=== PATIENT | female | born 1960 | race Caucasian/White ===

== ENCOUNTER 2023-09-12 17:34 | Observation (INO) | payer OTHER, SELFPAY ==
--- NOTE | ~2023-09-12 | XR_ITS ---
EXAMINATION: XR chest 2V Exam Date/Time: 09/12/2023 18:05 CDT HISTORY: chest pain WITH SHORTNESS OF BREATH X 3 DAYS Comparison: None. RESULT: Lines, tubes, and devices: None. Lungs and pleura: Mild hemidiaphragm flattening, may reflect emphysematous change. Lungs otherwise c lear. Cardiomediastinal silhouette: Normal. Other: No acute osseous or upper abdominal finding. IMPRESSION: No acute cardiopulmonary process. Reviewed, dictated and finalized at location K.
--- NOTE | ~2023-09-12 | CT_ITS ---
EXAMINATION: CTA chest PE abdomen pel DATE: 09/12/2023 23:59 INDICATION: SOB, CP, + DIMER, ABD PAIN/BLOATING, HX HEPC TECHNIQUE: Computed tomography angiography (CTA) of the chest was performed with 100 mL Omnipaque-350 intravenous contrast timed to evaluate the pulmonary arteries, followed by portal venous phase imagi ng of the abdomen and pelvis. Coronal maximum intensity projection 3D-reconstructions were created by the technologist. The dose-length product (DLP) was 697.94 mGy-cm. Automated exposure control and it erative reconstruction technique were employed. COMPARISON: None. FINDINGS: CHEST: Lung parenchyma and airways: Mild septal thickening. Minimal dependent right lower lung atelectasis. Pleura: Small volume right pleural fluid collection. Thoracic inlet, axillae and chest wall: No thyroid or soft tissue mass. Thoracic aorta: No significant dilation. No dissection. Mild atherosclerosis. Mediastinum: Normal. Heart and pericardium: Normal. Coronary artery calcifications: Absent. Thoracic bones: No acute osseous finding. Pulmonary arteries: Study quality: Adequate. No pulmonary emboli detected. ABDOMEN/PELVIS: Liver: Nodular liver border. Periportal edema. Biliary/Gallbladder: No gallbladder stones. Mild pericholecystic fat stranding. No bile duct dilation . Pancreas: No mass or duct dilation. Spleen: Normal. Adrenals:No mass. Kidneys: No suspicious mass, obstructing stone, or hydronephrosis. GI tract: Mild distal esophageal and gastric wall edema. No small or large bowel dilation. Appendix i s not confidently visualized and is likely surgically absent. Diverticulosis without diverticulitis. Mesentery/Peritoneum: No ascites, mass, or free air. Retroperitoneum: No mass. Pelvis: Pelvic organs are within normal limits. Small volume free pelvic fluid. Soft Tissues: Fat and fluid containing, moderate-sized supraumbilical ventral hernia with mild surrou nding fat stranding. Abdominopelvic bones: No acute osseous finding. IMPRESSION: No CT evidence of acute pulmonary embolus. Mild interstitial edema. Small right pleural effusion. Mild esophagitis/gastritis. Cirrhotic liver changes. Nonspecific periportal edema. Mild gallbladder edema or inflammation. Correlate with symptoms of right upper quadrant pain and bili feroz labs. Small volume ascites. Moderate sized supraumbilical ventral hernia containing fat and fluid, with mild inflammatory changes . Reviewed, dictated and finalized at location K. IMPRESSION: No CT evidence of acute pulmonary embolus. Mild interstitial edema. Small right pleural effusion. Mild esophagitis/gastritis. Cirrhotic liver changes. Nonspecific periportal edema. Mild gallbladder edema or inflammation. Correlate with symptoms of right upper quadrant pain and biliary labs. Small volume ascites. Moderate sized supraumbilical ventral hernia containing fat and fluid, with mil d inflammatory changes.
--- NOTE | 2023-09-12 17:35 | ECG_ITS ---
Test Date: 2023-09-12 17:40:04 Measurements Intervals [place] Rate: 69 P: 68 CO: 144 QRS: 47 QRSD: 84 T: 40 QT: 372 QTc: 399 Interpretive Statements SINUS RHYTHM POSSIBLE LEFT ATRIAL ENLARGEMENT POSSIBLE RIGHT VENTRICULAR CONDUCTION DELAY CONSIDER ANTERIOR INFARCT, AGE INDETERMINATE BORDERLINE ST-T WAVE ABNORMALITY- LAT/HIGH LAT LEADS BASELINE ARTIFACT- I, II, III, AVR, AVL, AVF, V2-V3 ABNORMAL ECG No previous ECG available for comparison Electronically Signed On 09-12-2023 18:21:14 CDT by Aguila Sepulveda D.O.
[2023-09-12 17:36] VITALS: BP 151/104; PULSE 68; RESP 18; TEMP 36.4; O2SAT 100
--- NOTE | 2023-09-12 17:48 | ED.CHESTPAIN ---
HPI - Chest Pain General Chief Complaint: Chest Pain <Liz Simental PA-C - Last Filed: 09/13/23 19:04> Stated Complaint: chest pain <Liz Simental PA-C - Last Filed: 09/13/23 19:04> Time Seen by Provider: 09/12/23 17:48 <Liz Simental PA-C - Last Filed: 09/13/23 19:04> Focused HPI: This is a 63-year-old female that presents to the emergency department for chest pain. Ongoing over the last couple of days. Worse with exertion. Reports she has also had shortness of breath and lower extremity edema. GENERAL: Well-appearing, well-nourished, and in no acute distress. HEAD: Normocephalic, atraumatic. CHEST: No respiratory distress. Rales to the bilateral lower lobes HEART: Regular rate and rhythm.? NEURO: ?Alert and oriented x3. Patient screened in triage and initial orders placed.? ?Additional care and disposition to be based upon?diagnostic testing and treatment. <Liz Simental PA-C - Last Filed: 09/13/23 19:04> Source: patient <Shanta Oates PA-C - Last Filed: 09/13/23 02:15> Mode of arrival: ambulatory <Shanta Oates PA-C - Last Filed: 09/13/23 02:15> Limitations: no limitations <KATHARINE Muir Last Filed: 09/13/23 02:15> History of Present Illness HPI narrative: agree with above HPI. Patient reports she has had chest pain mostly at night, states she will wake up with pain in her chest. She also reports waking up in the middle night gasping for air. Shortness of breath and chest pain are also worse with exertion. She does admit to lower extremity swelling for the last several days. Denies lower extremity pain. She did have a Doppler study of her right lower extremity 3 days ago which was negative for DVT. Patient also reports having abdominal bloating, denies significant abdominal pain. She does have history of hepatitis-C from previous drug abuse. She is clean from drugs. Denies EtOH use. States she was scheduled to have a liver ultrasound soon. Reports mild cough, denies fevers, nausea, vomiting, diarrhea. <KATHARINE Muir Last Filed: 09/13/23 02:15> Related Data Home Medications: Home Medications Medication Instructions Recorded Confirmed atenolol 25 mg tablet 12.5 mg PO DAILY 09/13/23 09/13/23 cetirizine 10 mg tablet 10 mg PO QPM 09/13/23 09/13/23 clonidine HCl 0.2 mg tablet 0.2 mg PO BID 09/13/23 09/13/23 fluticasone propionate 50 2 spray intranasal DAILY 09/13/23 09/13/23 mcg/actuation nasal spray,suspension nicotine 21 mg/24 hr daily 1 patch transdermal DAILY 09/13/23 09/13/23 transdermal patch quetiapine 300 mg tablet 300 mg PO HS 09/13/23 09/13/23 venlafaxine 150 mg 150 mg PO DAILY 09/13/23 09/13/23 capsule,extended release 24 hr venlafaxine 75 mg capsule,extended 75 mg PO DAILY 09/13/23 09/13/23 release 24 hr <Liz Simental PA-C - Last Filed: 09/13/23 19:04> Allergies/Adverse Reactions: Allergies Allergy/AdvReac Type Severity Reaction Status Date / Time amoxicillin Allergy Hives Verified 09/12/23 17:42 <KATHARINE Longoria Last Filed: 09/13/23 19:04> Review of Systems Review of Systems: CONSTITUTIONAL: Denies fever, chills, or sweats. ENT: Denies rhinorrhea, congestion, sore throat. CARDIOVASCULAR: See HPI. RESPIRATORY: See HPI. GASTROINTESTINAL: See HPI. <KATHARINE Muir Last Filed: 09/13/23 02:15> All systems reviewed & are unremarkable except as noted in HPI and below <KATHARINE Muir Last Filed: 09/13/23 02:15> PMFSH Past Medical History Medical History: Medical History (Updated 09/13/23 @ 13:50 by Linden Prieto MD) Ascites CHF exacerbation Chronic hepatitis C with cirrhosis Elevated liver enzymes <KATHARINE Longoria Last Filed: 09/13/23 19:04> Family History Family History: Family History (Updated 09/13/23 @ 03:08 by Liza Recio RN) Other Unknown family medical histo
[2023-09-12 17:59] LABS: Basophils Percent Auto 0.6 % (0.2-1.2); Eosinophils Absolute Auto 0.1 K/mm3 (0-0.3); Eosinophils Percent Auto 2.8 % (0-4.4); Hematocrit 37.8 % (37.0-47.0); Hemoglobin 12.6 g/dL (12.0-15.0); Immature Granulocyte Absolute 0.01 K/mm3 (0.00-0.031); Immature Granulocyte Percent A 0.2 % (0-0.5); Immature Platelet Fraction Pct 9.6 % (0.9-11.2); Lymphocytes Absolute Auto 1.39 K/mm3 (0.9-3.2); Lymphocytes Percent Auto 29.8 % (18.3-44.2); Mean Corpuscular HGB Conc 33.3 g/dl (32-36); Mean Corpuscular Hemoglobin 31.2 pg (26-34); Mean Corpuscular Volume 93.6 fl (80-100); Mean Platelet Volume 12.3 fl (7.4-10.4); Monocytes Absolute Auto 0.4 K/mm3 (0.1-0.6); Monocytes Percent Auto 8.8 % (2.6-8.5); Neutrophils Absolute Auto 2.7 K/mm3 (1.3-6.7); Neutrophils Percent Auto 57.8 % (45.5-73.1); Platelet Count Result 79 k/mm3 (150-375); Red Blood Count 4.04 M/mm3 (4.2-5.4); Red Cell Distribution Width 13.2 % (11.5-14.5); White Blood Count 4.7 K/mm3 (4.5-10.0)
[2023-09-12 18:08] LABS: Alanine Aminotransferase 42 U/L (6-35); Albumin Level 4.3 g/dL (3.5-5.1); Alkaline Phosphatase 103 U/L (38-126); Anion Gap 12 mmol/L (4-12); Aspartate Amino Transferase 56 U/L (14-36); Bilirubin,Total 0.7 mg/dL (0.2-1.3); Blood Urea Nitrogen 10 mg/dL (7-17); Calcium 8.9 mg/dL (8.4-10.2); Carbon Dioxide 25 mmol/L (22-30); Chloride 98 mmol/L (98-107); Estimated CRCL calculation 65 ml/min; Estimated Glomerular Filt Rate > 60; Glucose 103 mg/dL (65-110); Lipase 58 U/L (23-300); Potassium 3.9 mmol/L (3.4-5.0); Sodium 135 mmol/L (137-145)
[2023-09-12 18:11] LABS: INR 1.1; Prothrombin Time 14.8 Seconds (11.1-14.7)
[2023-09-12 18:12] LABS: Partial Thromboplastin Time 34.4 Seconds (22.3-36.8)
[2023-09-12 18:20] LABS: Troponin I < 0.012 ng/mL (0.000-0.034)
[2023-09-12 18:28] LABS: NT Pro B Type Natriuretic Pept 3830 pg/mL (19.9-100)
[2023-09-12 18:32] LABS: D Dimer 1.59 ug/mL (<0.48)
--- NOTE | 2023-09-12 21:00 | ECG_ITS ---
Test Date: 2023-09-12 23:34:37 Measurements Intervals [place] Rate: 64 P: 70 CO: 155 QRS: 73 QRSD: 81 T: 41 QT: 412 QTc: 427 Interpretive Statements SINUS RHYTHM POSSIBLE LEFT ATRIAL ENLARGEMENT POSSIBLE RIGHT VENTRICULAR CONDUCTION DELAY BORDERLINE R WAVE PROGRESSION, ANTERIOR LEADS BORDERLINE ST ABNORMALITY- INF/LAT LEADS BASELINE ARTIFACT- I, II, AVR, V4-V6 BORDERLINE ECG Compared to ECG 09/12/2023 17:40:04 NO SIGNIFICANT CHANGE Electronically Signed On 09-13-2023 06:07:28 CDT by Aguila Sepulveda D.O.
[2023-09-12 21:49] VITALS: BP 192/93; PULSE 65; RESP 18; O2SAT 97
[2023-09-12 21:54] VITALS: BP 192/91; PULSE 62; PULSE 63; RESP 16; O2SAT 97; O2SAT 99
[2023-09-12 21:57] LABS: Troponin I < 0.012 ng/mL (0.000-0.034)
[2023-09-12 23:46] LABS: Appearance Urine Cloudy (Clear); Bacteria Urine 4+ /hpf; Bilirubin Urine Negative (Negative); Blood Urine Negative (Negative); Color Urine Yellow (Yellow); Glucose Urine UA Negative (Negative); Ketones Urine Negative (Negative); Leukocyte Esterase Ur Negative LEU/UL (Negative); Nitrate Urine Negative (Negative); Non Pathogenic Casts 0-2; Protein Urine Negative (Negative); RBC Urine 0-2 /hpf (0-2); Specific Grav Ur 1.012 (1.001-1.035); Squamous Epithelial Cell Urine None Seen /hpf (Few); Urobilinogen Urine 0.2 mg/dL (<2.0); WBC Urine 0-5 /hpf (0-3); pH Urine 7.5 (5.0-9.0)
[2023-09-13] VITALS (18 sets, daily range): BP systolic 107–209; BP diastolic 55–110; PULSE 54–75; RESP 14–18; TEMP 35.8–36.9; O2SAT 96–100; BMI 25.4
[2023-09-13 00:01] LABS: Amphetamine Screen Urine Negative (Negative); Barbiturate Screen Urine Negative (Negative); Benzodiazepines Screen Urine Positive (Negative); Cannabinoid Screen Urine Negative (Negative); Cocaine Screen Urine Negative (Negative); Methadone Screen Urine Negative (Negative); Opiate Screen Urine Negative (Negative); Phencyclidine Screen Urine Negative (Negative)
[2023-09-13] MEDS: NITROGLYCERIN SL 0.4 MG TABLET SUBLINGUAL (00:21)
[2023-09-13 00:34] LABS: Add Urine Microscopic? YES
[2023-09-13] MEDS: FUROSEMIDE INJ 40 MG/4 ML VIAL IV PUSH ×2 (00:44→08:35)
[2023-09-13 00:58] LABS: Troponin I 0.013 ng/mL (0.000-0.034)
--- NOTE | 2023-09-13 03:07 | ADMGEN ---
This patient, Radha Mcgrath, was admitted to IMU Room 202-01 at 0220. Patient/family oriented to hospital policies and general routines including ID bracelet, bed and alarms, visiting hours, pain management, procedures, bathroom and other care routines, personal items, smoking policy, room service/diet, and visiting hours. Information on how to activate the Rapid Response Team has been discussed. Patient/Family are encouraged to report perceived risks to care and to ask questions if they do not understand what they are told or what they should do.
--- NOTE | 2023-09-13 03:55 | PM.IMHP ---
H&P: HPI History of Present Illness Date/Time: 09/13/23 03:55 Chief Complaint: Shortness of breath Narrative: Patient is a pleasant 63-year-old female who came to the emergency room complaining of some midsternal chest pain and ongoing for the last few days associated with some shortness of breath. The patient also noticed some lower extremity edema which is irritated new no previous history of diagnosed heart failure but the symptoms are relatively new patient came to emergency room for further evaluation. Patient recently had ultrasound of lower extremity to rule out DVT which was negative patient also has history of hepatitis C from previous drug use. Denied any history of alcohol use none now and states that she is clean. Patient does not have any chest pain at this time no nausea vomiting diarrhea headaches no history of any renal failure Review of Systems Review of Systems: All systems reviewed & are unremarkable except as noted in HPI and below PMFSH Family History Family History (Updated 09/13/23 @ 03:08 by Liza Recio RN) Other Unknown family medical history Social History Social History Smoking packs per day: 1 Smoking cigarettes per day: 20.0 Smoking status: Current every day smoker Tobacco type: cigarettes Alcohol intake: former Substance use: former Substance use type: heroin Do You Feel Safe in your Home?: Yes Lack of Transportation: No Lack of Food: Never True Current Housing: I Have Housing Concerned About Future Housing: No Difficulty Paying Gas/Electric Bills: No Difficulty Paying for Meds: No Currently Unemployed: No Education: High School Diploma/GED Difficulty w/ Childcare or Family Care: No Spiritual care concerns: No Meds Home Medications and Allergies Home Medications Medication Instructions Recorded Confirmed Type atenolol 25 mg tablet 12.5 mg PO DAILY 09/13/23 09/13/23 History cetirizine 10 mg tablet 10 mg PO QPM 09/13/23 09/13/23 History clonidine HCl 0.2 mg tablet 0.2 mg PO BID 09/13/23 09/13/23 History fluticasone propionate 50 2 spray intranasal DAILY 09/13/23 09/13/23 History mcg/actuation nasal spray,suspension nicotine 21 mg/24 hr daily 1 patch transdermal DAILY 09/13/23 09/13/23 History transdermal patch quetiapine 300 mg tablet 300 mg PO HS 09/13/23 09/13/23 History venlafaxine 150 mg 150 mg PO DAILY 09/13/23 09/13/23 History capsule,extended release 24 hr venlafaxine 75 mg capsule,extended 75 mg PO DAILY 09/13/23 09/13/23 History release 24 hr Allergies Allergy/AdvReac Type Severity Reaction Status Date / Time amoxicillin Allergy Hives Verified 09/12/23 17:42 Vital Signs Vital Signs - 24 hr 09/12/23 17:36 09/12/23 21:49 09/12/23 21:54 Temperature 36.4 C Pulse Rate 68 65 62 Respiratory Rate 18 18 16 Blood Pressure 151/104 H 192/93 H 192/91 H Pulse Oximetry 100 97 99 Oxygen Delivery Room Air Room Air 09/12/23 21:54 09/12/23 21:54 09/13/23 00:21 Temperature 36.9 C Pulse Rate 63 67 Respiratory Rate 14 Blood Pressure 209/78 H Pulse Oximetry 97 100 Oxygen Delivery Room Air 09/13/23 01:19 09/13/23 02:14 09/13/23 02:38 Temperature 36.2 C L Pulse Rate 61 59 L 63 Respiratory Rate 14 15 16 Blood Pressure 107/90 163/81 H 166/64 H Pulse Oximetry 100 98 100 Oxygen Delivery 09/13/23 03:31 Temperature Pulse Rate Respiratory Rate Blood Pressure Pulse Oximetry Oxygen Delivery Room Air Exam Narrative: GENERAL: Well appearing, no acute distress. HEAD: Normocephalic, atraumatic. NECK: Supple. No adenopathy, no masses. RESPIRATORY: respirations nonlabored. , no rales, wheezing. CARDIOVASCULAR: Regular rate and rhythm without murmurs, . Peripheral pulses 2+ and equal bilaterally. Plus two pitting edema bilateral lower extremity ABDOMINAL: Soft, nontender, nondistended, no hepatosplenomegaly. Nor
[2023-09-13] MEDS: rOPINIRole HCL 1 MG TABLET PO (04:28)
[2023-09-13 04:30] LABS: Hematocrit 39.5 % (37.0-47.0); Hematocrit 40.5 % (37.0-47.0); Hemoglobin 13.2 g/dL (12.0-15.0); Hemoglobin 13.6 g/dL (12.0-15.0); Mean Corpuscular HGB Conc 33.6 g/dl (32-36); Mean Corpuscular Hemoglobin 30.6 pg (26-34); Mean Platelet Volume 12.5 fl (7.4-10.4); Platelet Count Result 112 k/mm3 (150-375); Red Blood Count 4.45 M/mm3 (4.2-5.4); White Blood Count 5.9 K/mm3 (4.5-10.0)
[2023-09-13 04:43] LABS: Cholesterol 135 mg/dL (0-200); HDL Direct 56 mg/dL; Triglycerides 73 mg/dL (<150)
[2023-09-13 04:45] LABS: Alanine Aminotransferase 42 U/L (6-35); Albumin Level 4.5 g/dL (3.5-5.1); Alkaline Phosphatase 117 U/L (38-126); Anion Gap 11 mmol/L (4-12); Aspartate Amino Transferase 54 U/L (14-36); Bilirubin,Total 1.2 mg/dL (0.2-1.3); Blood Urea Nitrogen 8 mg/dL (7-17); Carbon Dioxide 29 mmol/L (22-30); Chloride 93 mmol/L (98-107); Estimated CRCL calculation 57 ml/min; Estimated Glomerular Filt Rate > 60; Glucose 120 mg/dL (65-110); Potassium 3.7 mmol/L (3.4-5.0); Sodium 133 mmol/L (137-145)
[2023-09-13 04:54] LABS: LDL Cholesterol Direct 52 mg/dL
[2023-09-13] MEDS: cloNIDine HCL 0.2 MG TABLET PO ×2 (08:34→17:17)
[2023-09-13] MEDS: atenoloL 12.5 MG TABLET PO (08:34)
[2023-09-13] MEDS: FLUTICASONE PROPIONATE 0.05% NA SPR 16 GM BTL (*BKC) 2 SPRAY NASAL (08:35)
[2023-09-13] MEDS: VENLAFAXINE HCL XR 75 MG CAP.ER.24H 225 MG PO (08:35)
[2023-09-13] MEDS: NICOTINE (*PBKC) 21 MG PATCH 1 PATCH TRANSDERM (08:35)
[2023-09-13] MEDS: ACETAMINOPHEN 325 MG TABLET 650 MG PO (10:57)
[2023-09-13] MEDS: CYCLOBENZAPRINE HCL 5 MG TABLET PO (12:25)
[2023-09-13] MEDS: ONDANSETRON INJ 4 MG/2 ML VIAL IV PUSH (12:25)
--- NOTE | 2023-09-13 13:44 | WPDGICN ---
Assessment and Plan Assessment and plan (1) Chronic hepatitis C with cirrhosis: Code(s): B18.2 - Chronic viral hepatitis C; K74.60 - Unspecified cirrhosis of liver Status: Acute Assessment and Plan: she is treatment naive, she says that already has follow-up with local GI doctor next month and then will discuss about treatment also will need EGD to assess for portal htn, varices, etc- this can be done by her GI doctor I told her the importance to treat HCV. She can follow-up in our office if she decides to continue care here at some point will need also to get establish with hepatology (right now low MELD score) (2) Elevated liver enzymes: Code(s): R74.8 - Abnormal levels of other serum enzymes Status: Acute Assessment and Plan: from cirrhosis (3) CHF exacerbation: Code(s): I50.9 - Heart failure, unspecified Status: Acute (4) Thrombocytopenia: Code(s): D69.6 - Thrombocytopenia, unspecified Status: Acute Assessment and Plan: from cirrhosis (5) Ascites: Code(s): R18.8 - Other ascites Status: Acute Assessment and Plan: small size, unable to tap on lasix, will add low dose aldactone (normal renal function and lytes) monitor blood work as outpatient 2g na diet nutrition support GI Consult Note Consult date/time: 09/13/23 13:44 Reason for consult: cirrhosis HPI: Radha Mcgrath is a 63 year old female with h/o smoker, HCV diagnosed about 3 years ago but never treated, 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 Here with chest discomfort and also dyspnea on exertion for last 2 days, noted leg edema. She was admitted, CXR normal but BNP 3800, also transaminases 50's, normal bili. CT showed cirrhosis with small ascites. Started on diuretics and feeling better, she wonders if could go home soon. Review of Systems Constitutional: Constitutional: Denies chills Eyes: Eyes: Denies blurry vision ENT: Reports Normal hearing present Cardiovascular: Cardiovascular: Reports chest pain Respiratory: Respiratory: Reports dyspnea on exertion Gastrointestinal: Gastrointestinal: Denies abdominal pain Genitourinary: Genitourinary: Denies dysuria Musculoskeletal: Musculoskeletal: Denies neck pain Integumentary/Breasts: Skin/Breast: Denies rash Neurologic: Denies Abnormal speech present Psychiatric: Psychiatric: Denies behavioral changes [facility] Past Medical History Medical History (Updated 09/13/23 @ 13:50 by Linden Prieto MD) Ascites CHF exacerbation Chronic hepatitis C with cirrhosis Elevated liver enzymes Family History Family History (Updated 09/13/23 @ 03:08 by Liza Recio, MELITON) Other Unknown family medical history Social History Social History Smoking packs per day: 1 Smoking cigarettes per day: 20.0 Smoking status: Current every day smoker Tobacco type: cigarettes Alcohol intake: former Substance use: former Substance use type: heroin Do You Feel Safe in your Home?: Yes Lack of Transportation: No Lack of Food: Never True Current Housing: I Have Housing Concerned About Future Housing: No Difficulty Paying Gas/Electric Bills: No Difficulty Paying for Meds: No Currently Unemployed: No Education: High School Diploma/GED Difficulty w/ Childcare or Family Care: No Spiritual care concerns: No Meds Home Medications and Allergies Home Medications Medication Instructions Recorded Confirmed Type atenolol 25 mg tablet 12.5 mg PO DAILY 09/13/23 09/13/23 History cetirizine 10 mg tablet 10 mg PO QPM 09/13/23 09/13/23 History clonidine HCl 0.2 mg tablet 0.2 mg PO BID 09/13/23 09/13/23 History fluticasone propionate 50 2 spray intranasal DAILY 09/13/23 09/13/23 History mcg/actuation nasal spray,suspension nicotine 21 mg/24 hr esther
--- NOTE | 2023-09-13 15:44 | PM.DS ---
DS: Admitting Diagnosis Discharge Date 09/13/2023 Admitting Diagnosis Shortness of breath DS: Discharge Diagnosis Discharge Diagnosis (1) Chest pain: Qualifiers: Chest pain type: unspecified Qualified Code(s): R07.9 - Chest pain, unspecified Code(s): R07.9 - Chest pain, unspecified Status: Acute Assessment and Plan: ACS Troponins are negative patient's symptoms are typical chest pain with worse on exertion, concerning for ACS -continue telemetry, EKG showed may be early repolarization -prn Nitroglycerin, oxygen, morphine, aspirin -checking lipid panel and hemoglobin A1c -counseled on smoking cessation Cardiology consulted 2D echo to evaluate LV function Abdominal or LFTs will repeat ultrasound and check liver enzymes in a.m. cirrhotic liver changes seen on the CT scan Urine tox screen positive for benzos Recently had lower extremity ultrasound for DVT which was negative. CT chest negative for PE (2) CHF (congestive heart failure): Qualifiers: Heart failure chronicity: acute Heart failure type: unspecified Qualified Code(s): I50.9 - Heart failure, unspecified Code(s): I50.9 - Heart failure, unspecified Status: Acute Assessment and Plan: pt treated with iv lasix BNP 3830 pt given iv lasix prior to dc and dc on oral lasix pt wants to go home (3) Cirrhosis: Qualifiers: Ascites presence: with ascites Hepatic cirrhosis type: unspecified hepatic cirrhosis Qualified Code(s): K74.60 - Unspecified cirrhosis of liver; R18.8 - Other ascites Code(s): K74.60 - Unspecified cirrhosis of liver Status: Acute Assessment and Plan: secondary to hep c and drug use pt to get treatment for hep 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 The patient also noticed some lower extremity edema which is irritated new no previous history of diagnosed heart failure but the symptoms are relatively new patient came to emergency room for further evaluation. Patient recently had ultrasound of lower extremity to rule out DVT which was negative patient also has history of hepatitis C from previous drug use. pt seen by [facility] explained about hep c treatment and need for hepatology follow up Time Spent with Patient Time attestation: Total time spent providing and/or coordinating discharge services:40 minutes on day of DC Exam Narrative: GENERAL: Well appearing, no acute distress. HEAD: Normocephalic, atraumatic. NECK: Supple. No adenopathy, no masses. RESPIRATORY: respirations nonlabored. , no rales, wheezing. CARDIOVASCULAR: Regular rate and rhythm without murmurs, . Peripheral pulses 2+ and equal bilaterally. Plus two pitting edema bilateral lower extremity ABDOMINAL: Soft, nontender, nondistended, no hepatosplenomegaly. Normoactive BS. MUSCULOSKELETAL: no Epigastric and no hypochondrial tenderness SKIN: Warm, dry, NEURO: A&O X3. Moves all extremities DS: Data Data Completed and Pending Labs on day of discharge: Labs from last 24 hours 09/13/23 09/13/23 09/13/23 04:24 04:24 04:24 WBC 5.9 RBC 4.45 Hgb 13.6 13.2 Hct 40.5 39.5 MCV 91.0 MCH 30.6 MCHC 33.6 RDW 13.0 Plt Count 112 L MPV 12.5 H Immature Gran % (Auto) Neut % (Auto) Lymph % (Auto) Cochran % (Auto) Eos % (Auto) Baso % (Auto) Lymph # (Auto) Cochran # (Auto) Eos # (Auto) Baso # (Auto) Abs Immat Gran (auto) Absolute Neuts (auto) Absolute Nucleated RBC Nucleated RBC % % Immature Plt Fraction PT INR APTT D-Dimer Sodium 133 L Potassium 3.7 Chloride 93 L Carbon Dioxide 29
[2023-09-13] MEDS: LORATADINE 10 MG TABLET PO (17:17)
== END 2023-09-13 17:27 | disposition home or self-care (01) ==
LOC: ANHED 09-13 00:48 → ANHIMU 09-13 02:15
PROVIDERS: Emergency Medicine; Physician Assistant; Admitting Provider Internal Medicine; Emergency Provider Physician Assistant; PCP Internal Medicine Infectious Disease; Visit Provider Family Medicine
DX: R07.9 Chest pain, unspecified (principal); I50.9 Heart failure, unspecified; D69.6 Thrombocytopenia, unspecified; K74.60 Unspecified cirrhosis of liver; R18.8 Other ascites; B18.2 Chronic viral hepatitis C; R74.8 Abnormal levels of other serum enzymes; F17.210 Nicotine dependence, cigarettes, uncomplicated; Z79.899 Other long term (current) drug therapy
CPT/HCPCS: 36415; 71046; 71275; 74177; 80053; 80061; 80307; 81001; 83690; 83880; 84484; 85014; 85018; 85025; 85027; 85055; 85380; 85610; 85730; 93005; 96374; 96375; 96376; 99285; A9270; G0378; G0379; J1940; J2405; Q9967